=== PATIENT | female | born 1995 | race Caucasian/White ===

== ENCOUNTER → 2024-04-01 08:14 | Outpatient (REF) | payer BC, SELFPAY | LOC: PNTC 08:14 | PROVIDERS: ATTENDING PHYSICIAN Obstetrics & Gynecology | DX: O36.5990 Maternal care for other known or suspected poor fetal growth, unspecified trimester, not applicable or unspecified (principal); Z34.82 Encounter for supervision of other normal pregnancy, second trimester | CPT/HCPCS: 76805 ==

== ENCOUNTER → 2024-06-11 11:03 | Outpatient (REF) | payer BC, SELFPAY | LOC: PNTC 11:03 | PROVIDERS: ATTENDING PHYSICIAN Student in an Organized Health Care Education/Training Program | DX: O36.5920 Maternal care for other known or suspected poor fetal growth, second trimester, not applicable or unspecified (principal) | CPT/HCPCS: 76816 ==

== ENCOUNTER → 2024-07-09 10:00 | Outpatient (REF) | payer BC, SELFPAY | LOC: PNTC 10:00 | PROVIDERS: ATTENDING PHYSICIAN Student in an Organized Health Care Education/Training Program | DX: Z87.59 Personal history of other complications of pregnancy, childbirth and the puerperium (principal) | CPT/HCPCS: 76816 ==

== ENCOUNTER → 2024-08-06 10:08 | Outpatient (REF) | payer BC, SELFPAY | LOC: PNTC 10:08 | PROVIDERS: ATTENDING PHYSICIAN Student in an Organized Health Care Education/Training Program | DX: Z87.59 Personal history of other complications of pregnancy, childbirth and the puerperium (principal) | CPT/HCPCS: 76816 ==

== ENCOUNTER → 2024-08-28 10:34 | Outpatient (REF) | payer BC, SELFPAY | LOC: PNTC 10:34 | PROVIDERS: ATTENDING PHYSICIAN Student in an Organized Health Care Education/Training Program | DX: O36.5990 Maternal care for other known or suspected poor fetal growth, unspecified trimester, not applicable or unspecified (principal) | CPT/HCPCS: 76816 ==

== ENCOUNTER 2024-09-04 08:08 | Inpatient (IN) | payer BC, SELFPAY ==
[2024-09-04 08:20] VITALS: BP 108/77; BMI 22.3
[2024-09-04] MEDS: LR 1000 IV ×3 (08:30→14:45)
[2024-09-04 09:03] LABS: Hematocrit 35.7 % (37.0-47.0); Hemoglobin 12.4 g/dL (12.0-16.0); Mean Corp Hgb Conc. 34.7 g/dL (33.0-37.0); Mean Corpuscular Hgb 31.9 pg (27.0-31.0); Mean Corpuscular Volume 91.8 fL (81.0-99.0); Mean Platelet Volume 10.9 fL (7.4-10.4); Platelet Count 215 10^3/uL (130-400); Red Blood Cell Count 3.89 10^6/uL (4.20-5.40); Red Cell Dist. Width 11.9 % (11.5-14.5); White Blood Cell Count 8.6 10^3/uL (4.8-10.8)
[2024-09-04] MEDS: BRETHINE 250 MCG SC ×2 (09:30→12:05)
[2024-09-04] MEDS: TYLENOL 1000 MG PO (12:06)
[2024-09-04] MEDS: BICITRA 30 ML PO (12:06)
[2024-09-04] MEDS: ANCEF 10 IV (12:07)
[2024-09-04] MEDS: SUBLIMAZE 100 MCG EPIDURAL (12:30)
[2024-09-04] MEDS: PITOCIN 30 UNITS/NSS 500 ML IV (17:06)
[2024-09-04] MEDS: STADOL 1 MG IV (21:50)
[2024-09-04] MEDS: FENTANYL/BUPIVACAINE 100 EPIDURAL (23:21)
[2024-09-05] MEDS: PITOCIN 30 UNITS/NSS 500 ML IV (02:37)
[2024-09-05] MEDS: MOTRIN 600 MG PO ×3 (06:19→18:21)
[2024-09-05] MEDS: PRENATAL PLUS 1 TABLET PO (07:49)
[2024-09-05] MEDS: VITAMIN D3 (cholecalciferol) 10 MCG PO (07:51)
--- NOTE | 2024-09-05 08:29 | W.PN.ANS.POP ---
Anesthesia Post Operative
- Anesthesia Post Op Note
Vital Signs Stable-See Nursing Note: Yes
Airway Patent: Yes
Adequate Pain Control: Yes
Change in Mental Status: No
Current Postoperative Nausea & Vomiting: No
Anesthesia Complications: No
General Anesthetic Recall: No
Unplanned Admission: No
Post Op Hydration Adequate: Yes
[2024-09-05] MEDS: SENOKOT-S 1 TABLET PO (12:19)
[2024-09-05] MEDS: TYLENOL 650 MG PO ×2 (18:21→23:37)
[2024-09-06] MEDS: MOTRIN 600 MG PO ×4 (00:37→23:03)
[2024-09-06 03:36] LABS: Hematocrit 31.7 % (37.0-47.0); Hemoglobin 10.6 g/dL (12.0-16.0)
[2024-09-06] MEDS: TYLENOL 650 MG PO ×3 (05:59→23:03)
[2024-09-06] MEDS: PRENATAL PLUS 1 TABLET PO (09:22)
[2024-09-06] MEDS: VITAMIN D3 (cholecalciferol) 10 MCG PO (09:22)
[2024-09-06] MEDS: SENOKOT-S 1 TABLET PO (09:23)
[2024-09-06 11:14] LABS: Syphilis/T. pallidum Ab Reflex Negative (Negative)
[2024-09-07] MEDS: MOTRIN 600 MG PO (05:35)
[2024-09-07] MEDS: TYLENOL 650 MG PO (05:35)
[2024-09-07] MEDS: PRENATAL PLUS 1 TABLET PO (07:37)
[2024-09-07] MEDS: VITAMIN D3 (cholecalciferol) 10 MCG PO (07:38)
[2024-09-07] MEDS: SENOKOT-S 1 TABLET PO (07:38)
[2024-09-07] MEDS: M-M-R II 0.5 ML SC (07:42)
== END 2024-09-07 11:18 | disposition home or self-care (01) | DRG 807 ==
LOC: LDRP 08:08
PROVIDERS: ADMITTING PHYSICIAN Obstetrics & Gynecology; FAMILY PHYSICIAN Nurse Practitioner Adult Health
PROC: 10907ZC Drainage of Amniotic Fluid, Therapeutic from Products of Conception, Via Natural or Artificial Opening (ICD-10-PCS; 2024-09-04)
PROC: 3E033VJ Introduction of Other Hormone into Peripheral Vein, Percutaneous Approach (ICD-10-PCS; 2024-09-04)
PROC: 10S0XZZ Reposition Products of Conception, External Approach (ICD-10-PCS; 2024-09-04)
PROC: 4A1HXCZ Monitoring of Products of Conception, Cardiac Rate, External Approach (ICD-10-PCS; 2024-09-04)
PROC: 10E0XZZ Delivery of Products of Conception, External Approach (ICD-10-PCS; 2024-09-05)
DX: O32.1XX0 Maternal care for breech presentation, not applicable or unspecified (principal); Z37.0 Single live birth; O69.89X0 Labor and delivery complicated by other cord complications, not applicable or unspecified; Z3A.39 39 weeks gestation of pregnancy; Z86.16 Personal history of COVID-19
CPT/HCPCS: 88307; 36415; 85014; 85018; 85027; 86780; 86850; 86900; 86901; 90707